=== PATIENT | male | born 1975 | race American Indian/Alaskan Native ===

== ENCOUNTER 2018-07-24 12:41 | Inpatient (IN) | payer SELFPAY ==
--- NOTE | 2018-07-24 14:12 | Emergency Department Report ---
<MESSI MONTE - Last Filed: 07/24/18 14:10> ED Extremity Problem HPI - General Chief complaint: Extremity Problem,Nontraumatic Stated complaint: RT BIG TOE PAIN Time Seen by Provider: 07/24/18 13:43 Source: patient Mode of arrival: Ambulatory Limitations: No Limitations - History of Present Illness Initial comments: Ervin is a 43-year-old Male who is presenting with right great toe infection. Patient states the last 2 weeks he has had increased swelling to the right great toe with discoloration the patient also states that he has a large amount of pus and skin sloughing at the base of the right great toe. Patient states that he has had no fevers chills nausea vomiting at this time. Patient states the aching pain in the foot is actually great toe is nontender. Patient until he has poor circulation in his legs. 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 Absent: respiratory distress, wheezes, rales - Cardiovascular Cardiovascular Exam: Present: regular rate, normal rhythm. Absent: systolic murmur, diastolic murmur, rubs, gallop - GI/Abdominal GI/Abdominal exam: Present: soft, normal bowel sounds - Rectal Rectal exam: Present: deferred - Extremities Exam Extremities exam: Present: normal inspection, other (of the patient's right great toe shows hyperpigmentation is cool to touch distally. At the base of the right great toe the patient from the mid dorsal surface going around medially to the entire plantar surface at the MCP joint shows necrosis granulation tissue. There is a foul odor present.) - Back Exam Back exam: Present: normal inspection - Neurological Exam Neurological exam: Present: alert, oriented X3 - Psychiatric Psychiatric exam: Present: normal affect, normal mood - Skin Skin exam: Present: warm, dry, intact, normal color. Absent: rash ED Disposition Clinical Impression: Osteomyelitis of right foot Qualifiers: Osteomyelitis type: unspecified type Qualified Code(s): M86.9 - Osteomyelitis, unspecified Disposition: DC-09 OP ADMIT IP TO THIS HOSP Condition: Stable <RADHA VALVERDE - Last Filed: 07/24/18 21:37> ED Extremity Problem HPI - History of Present Illness Initial comments: Patient denies any pain to side. Denies any loss of sensation. He said that area started around his right great toe is blistered and hit worsened and now draining pus with that order. Patient reports that he has a history of poor circulation to his lower extremity and was diagnosed after he had a stroke a couple years ago. Patient also smokes for 23 years he said he started SMOKING in 1 pack every 2 days and now he smokes 3-4 cigarettes a day. MD Complaint: joint swelling Onset/Timin -: week(s) Location: right, toe (great toe) History of Same: Yes -: No myalgia, No arthralgia, No fever, No associated dyspnea, No associated chest pain Radiation: none Severity scale (0 -10): 0 Associated Symptoms: denies: chest pain, shortness of breath, fever, myalgias, arthralgias, rash ED Review of Systems ROS: Stated complaint: RT BIG TOE PAIN Other details as noted in HPI Comment: All other systems reviewed and negative Constitutional: denies: chills, fever, malaise Respiratory: denies: cough, shortness of breath, wheezing Cardiovascular: denies: chest pain, palpitations, dyspnea on exertion, edema, syncope Gastrointestinal: denies: abdominal pain, nausea, vomiting Musculoskeletal: denies: back pain, joint swelling, arthralgia, myalgia Skin: other (right great toe with wound, swollen and pus) Neurological: denies: headache, weakness, numbness, paresthesias, vertigo ED Past Medical Hx - Family History Family history: hypertension ED Physical Exam - Eye Eye exam: Present: PERRL - ENT ENT exam: Present: normal exam - Neck Neck exam: Present: full ROM - Cardiovascular Cardiovascular Exam: Present: normal heart sounds - GI/Abdominal GI/Abdominal exam: Absent: tenderness - Extremities Exam Extremities exam: Present: full ROM, normal capillary refill, joint swelling, other. Absent: normal inspection, tenderness, pedal edema, calf tenderness - Expanded Lower Extremity Exam Right Hip exam: Present: normal inspection, full ROM Upper Leg exam: Present: normal inspection, full ROM Knee exam: Present: normal inspection, full ROM Lower Leg exam: Present: normal inspection, full ROM Ankle exam: Present: normal inspection, full ROM Foot/Toe exam: Present: full ROM, swelling (right great toe extending into first metacarpal bone area), dislocation (with pus draining from right great toe and laxity of toe. Hyperpigmentation to foot and toes.). Absent: normal inspect ion, tenderness, abrasion, laceration, ecchymosis, deformity, crepidus, erythema, amputation, puncture wound, foreign body, calcaneal tenderness, tenderness at base of 5th metatarsal, nail avulsion Neuro vascular tendon exam: Present: abnormal cap refill (greater than 3 seco nds), decreased fine/light touch (right great toe). Absent: pulse deficit (right pedal pulses are 1+), motor deficit, sensory deficit, tendon deficit, extremity cold to touch, pallor, abnormal 2-point discrimination, foot drop, peroneal nerve deficit, significant pain with passive ROM of distal joint Gait: Positive: observed and normal - Back Exam Back exam: Present: full ROM - Neurological Exam Neurological exam: Present: normal gait, reflexes normal. Absent: motor sensory deficit - Skin Skin exam: Present: other (patient with wound to right great toe). Absent: warm (cool to touch to right great toe otherwise normal temperature), intact, normal color - Expanded Skin Exam Expanded Type of lesion: Present: other (infected wound right great toe) Distribution of rash: other (right great toe with discoloration extending to the right foot) Description of rash: Present: tenderness, swelling, discharge, other ( patient's right great toe shows hyperpigmentation is cool to touch distally. At the base of the right great toe the patient from the mid dorsal surface going around medially to the entire plantar surface at the MCP joint shows necrosis granulation tissue. There is a foul odor present.). Absent: erythematous ED Course Vital Signs 07/24/18 07/24/18 12:45 20:06 Temperature 98.6 F 98.5 F Pulse Rate 58 L 76 Respiratory 16 19 Rate Blood Pressure 127/79 Blood Pressure 110/64 [Right] O2 Sat by Pulse 100 99 Oximetry - Reevaluation(s) Reevaluation #1: 07/24/18 16:25 Patient with osteomyelitis of right great toe and will be started on vancomycin and Ceftin IV. He denies pain. Hospitalist paged and awaiting call back blood cultures ordered Reevaluation #2: 07/24/18 17:37 Dr. SUN saw and assessed patient and patient to be admitted to [facility]. Reevaluation #3: 07/24/18 20:45 Patient on route to [facility] floor. He remained stable throughout ED course. Admitted by hospitalist Reevaluation #4: 07/24/18 21:31 Patient transferred to room 386 ED Medical Decision Making - Lab Data Result diagrams: 07/24/18 14:19 07/24/18 14:19 Lab Results 07/24/18 07/24/18 Range/Units 14:19 14:19 WBC 9.7 (4.5-11.0) K/mm3 RBC 4.64 (3.65-5.03) M/mm3 Hgb 14.6 (11.8-15.2) gm/dl Hct 43.7 (35.5-45.6) % MCV 94 (84-94) fl MCH 31 (28-32) pg MCHC 33 (32-34) % RDW 13.7 (13.2-15.2) % Plt Count 413 (140-440) K/mm3 Lymph % (Auto) 34.2 (13.4-35.0) % Lassen % (Auto) 7.0 (0.0-7.3) % Eos % (Auto) 2.1 (0.0-4.3) % Baso % (Auto) 1.1 (0.0-1.8) % Lymph # 3.3 (1.2-5.4) K/mm3 Lassen # 0.7 (0.0-0.8) K/mm3 Eos # 0.2 (0.0-0.4) K/mm3 Baso # 0.1 (0.0-0.1) K/mm3 Seg Neutrophils % 55.6 (40.0-70.0) % Seg Neutrophils # 5.4 (1.8-7.7) K/mm3 Sodium 137 (137-145) mmol/L Potassium 4.4 (3.6-5.0) mmol/L Chloride 96.1 L (98-107) mmol/L Carbon Dioxide 26 (22-30) mmol/L Anion Gap 19 mmol/L BUN 11 (9-20) mg/dL Creatinine 0.7 L (0.8-1.5) mg/dL Estimated GFR > 60 ml/min BUN/Creatinine Ratio 16 % Glucose 80 (75-100) mg/dL Calcium 9.8 (8.4-10.2) mg/dL Blood culture pending - Radiology Data Radiology results: report reviewed Findings [facility] [address] [place] [address] XRay Report Signed Patient: CLARY CHAMBERS MR#: [id number] : 1975 Acct:[id number] Age/Sex: 43 / M ADM Date: 07/24/18 Loc: ED Attending Dr: Ordering Physician: MESSI MONTE MD Date of Service: 07/24/18 Procedure(s): XR foot 2V RT Accession Number(s): [id number] cc: MESSI MONTE MD Fluoro Time In Minutes: RIGHT FOOT, 2 VIEWS History: Swelling to right great toe. Findings: There is a large complex soft tissue defect or laceration at the level of the interphalangeal joint of the great toe. Resorption of the distal aspect of the proximal phalanx and the base of the distal phalanx of the great toe is appreciated. It is unclear if this represents a traumatic injury or is related to infection. Osteomyelitis cannot be excluded. Please correlate with the clinical history of the patient. The remaining bony structures in the right foot are intact. Moderate distal soft tissue swelling is noted. Impression: Severely abnormal right great toe as described. Traumatic injury or osteomyelitis/infectious process is suspected. Please correlate with the patient's clinical history. Transcribed By: TTR Dictated By: TRINA OLIVERA JR, MD Electronically Authenticated By: TRINA OLIVERA JR, MD Signed Date/Time: 07/24/18 1502 DD/ 1500 TD/TT: 07/24/18 1502 - Medical Decision Making This is a 40-year-old male here report right great toe infection with bad odor and drainage. Patient had x-ray of right foot which shows Severely abnormal right great toe as described. Traumatic injury or osteomyelitis/infectious process is suspected. This was dictated by radiologist and report reviewed by myself and Dr. Virginia Monte. Dr. Monte also evaluated patient. She had no pain to side. He was started on vancomycin and ceftriaxone IV and Dr. Sun who is a hospitalist evaluated patient and it was decided the patient will be admitted to inpatient. This was discussed the patient in details and is in agreement. Patient is stable and [facility] - Differential Diagnosis infection, bacterial unknown, osteomyelitis Critical care attestation.: If time is entered above; I have spent that time in minutes in the direct care of this critically ill patient, excluding procedure time. ED Disposition Is pt being admited?: Yes Does the pt Need Aspirin: No
[2018-07-24 14:34] LABS: Basophils # (Auto) 0.1 K/mm3 (0.0-0.1); Basophils % (Auto) 1.1 % (0.0-1.8); Eosinophils # (Auto) 0.2 K/mm3 (0.0-0.4); Eosinophils % (Auto) 2.1 % (0.0-4.3); Hematocrit 43.7 % (35.5-45.6); Hemoglobin 14.6 gm/dl (11.8-15.2); Lymphocytes # (Auto) 3.3 K/mm3 (1.2-5.4); Lymphocytes % (Auto) 34.2 % (13.4-35.0); Mean Corpuscular HGB Conc 33 % (32-34); Mean Corpuscular Volume 94 fl (84-94); Monocytes # (Auto) 0.7 K/mm3 (0.0-0.8); Platelet Count 413 K/mm3 (140-440); Red Blood Count 4.64 M/mm3 (3.65-5.03); Red Cell Distribution Width 13.7 % (13.2-15.2)
[2018-07-24 14:57] LABS: BUN/Creatinine Ratio 16; Blood Urea Nitrogen 11 mg/dL (9-20); Calcium 9.8 mg/dL (8.4-10.2); Hemolysis Index 4
--- NOTE | 2018-07-24 15:04 | XRay Report ---
RIGHT FOOT, 2 VIEWS History: Swelling to right great toe. Findings: There is a large complex soft tissue defect or laceration at the level of the interphalangeal joint of the great toe. Resorption of the distal aspect of the proximal phalanx and the base of the distal phalanx of the great toe is appreciated. It is unclear if this represents a traumatic injury or is related to infection. Osteomyelitis cannot be excluded. Please correlate with the clinical history of the patient. The remaining bony structures in the right foot are intact. Moderate distal soft tissue swelling is noted. Impression: Severely abnormal right great toe as described. Traumatic injury or osteomyelitis/infectious process is suspected. Please correlate with the patient's clinical history.
[2018-07-24] MEDS ORDERED: VANCOMYCIN/NS 1 GM/250 ML 1 GM/250 ML BAG IV ONE (16:17)
[2018-07-24] MEDS ORDERED: ROCEPHIN/NS 2 GM/100 ML 2 GM/100 ML BAG IV ONE (16:17)
[2018-07-24] MEDS ORDERED: VANCOMYCIN 2,000 MG in NACL 0.9% 500 ML 500 ML IV ONE (16:30)
[2018-07-24] MEDS ORDERED: SODIUM CHLORIDE FLUSH SYRINGE 10 ML IV PRN (17:38)
[2018-07-24] MEDS: D5/0.45NS 1,000 ML IV SCH (23:23)
[2018-07-25] MEDS ORDERED: TYLENOL PO PRN (01:13)
[2018-07-25] MEDS ORDERED: ZOFRAN IV PRN (01:13)
[2018-07-25] MEDS ORDERED: SODIUM CHLORIDE FLUSH SYRINGE 10 ML IV PRN (01:13)
[2018-07-25] MEDS ORDERED: VANCOMYCIN PHARMACY TO DOSE IV SCH (02:00)
[2018-07-25] MEDS: D5/0.45NS 1,000 ML IV SCH ×2 (04:21→17:55)
[2018-07-25] MEDS ORDERED: VANCOMYCIN 1,750 MG in NACL 0.9% 500 ML 500 ML IV SCH (06:00)
--- NOTE | 2018-07-25 07:22 | Event Note ---
Date: 07/24/18 See dictated H/p in reports Rt Great toe wound with infection and possible Osteomyelitis
--- NOTE | 2018-07-25 07:46 | History and Physical Report ---
CHIEF COMPLAINT: Right great toe infection for 2 weeks. HISTORY OF PRESENT ILLNESS: A 43-year-old male with no significant past medical history except for a cerebrovascular accident in the past and circulatory issues to both lower extremities, comes in for right great toe infection of 2 weeks' duration. Deep ulcer present on the proximal part of the right great toe and feels as if the toe is falling apart. Pain is about 7 on a scale of 1-10. The patient states that he has poor circulation in the legs. PAST MEDICAL HISTORY: Significant for cerebrovascular accident and peripheral arterial disease. PAST SURGICAL HISTORY: Cancerous cyst removed from brain at the age 6, history is unclear. SOCIAL HISTORY: Smokes over a pack a day. FAMILY HISTORY: Hypertension. REVIEW OF SYSTEMS: Significant for right great toe ulcer with drainage and pain. Otherwise, review of systems negative. PHYSICAL EXAMINATION: GENERAL: Young male, cooperative during examination. VITAL SIGNS: Blood pressure is 110/64, temperature is 98.5, pulse is 58-76. HEENT: Unremarkable. Pupils are equal and reactive. NECK: Supple, no lymphadenopathy, no thyromegaly. LUNGS: Clear to auscultation and percussion. Good air entry. CARDIOVASCULAR: S1, S2 heard. No gallop, no murmur, no rub. Apical impulse in left fifth intercostal space and midclavicular line. ABDOMEN: Soft and benign. No hepatosplenomegaly. No guarding, no rigidity. EXTREMITIES: Deep ulcer present on the dorsal surface of the right great toe extending up to the plantar surface at the metacarpophalangeal joint junction. Also, necrotic tissue and foul odor present. CENTRAL NERVOUS SYSTEM: Alert and oriented x 4, nonfocal exam. LABORATORY DATA AND IMAGING STUDIES: Foot x-ray shows severely abnormal right great toe, traumatic injury or osteomyelitis, or infected process suspected. Please correlate with the patient's clinical history. Labs are normal. CBC is normal. White count is 9700. Electrolytes are normal. BUN and creatinine 11 and 0.7. ASSESSMENT AND PLAN: 1. Right great toe infected wound with cellulitis. The patient initiated on ceftriaxone and vancomycin. Also, Orthopedic consult requested because of possible osteomyelitis. The patient may need amputation of the great toe. IV antibiotics, ceftriaxone, and vancomycin to continue. 2. Peripheral arterial disease, arterial duplex scan ordered. Check the arterial duplex scan. Vascular Surgery consult if necessary. 3. Deep venous thrombosis prophylaxis, Lovenox 40 mg subcutaneous daily. [facility]# [id number] DAMION/ANANYA
[2018-07-25] MEDS: ROCEPHIN/NS 2 GM/100 ML 2 GM/100 ML BAG IV SCH (09:49)
[2018-07-25] MEDS: PEPCID PO SCH ×2 (09:50→22:11)
[2018-07-25] MEDS: SODIUM CHLORIDE FLUSH SYRINGE 10 ML IV SCH ×2 (09:50→22:12)
--- NOTE | 2018-07-25 11:43 | Progress Note ---
Assessment and Plan Right great toe infected wound with cellulitis and possible osteomyelitis - Continue Rocephin and vancomycin - Orthopedics consulted, wound care consulted - We'll follow blood culture and wound culture Peripheral artery disease, arterial duplex scan ordered DVT prophylaxis, continue Lovenox Physical exam: GENERAL: well-developed and well-nourished -[place] male lying on bed appeared to be in no discomfort. HEENT: Normocephalic. Atraumatic. No conjunctival congestion or icterus. Patient has moist mucous membranes. NECK: Supple. Trachea midline. CHEST/LUNGS: Clear to auscultated bilaterally, breathing nonlabored. No wheezes crackles or rhonchi. HEART/CARDIOVASCULAR: Regular in rate and rhythm. S1 and S2 positive. ABDOMEN: Abdomen is soft, nontender. Patient has normal bowel sounds. SKIN: There is no rash. Warm and dry. NEURO: No focal motor deficit. Follows command. MUSCULOSKELETAL: No joint effusion or tenderness. EXTRIMITY: No edema, no cyanosis or clubbing. Right great toe with ulcer and foul smell PSYCH: Cooperative. Subjective Date of service: 07/25/18 Interval history: Patient seen and examined c/o right leg pain draining foul smelling discharge from right great toe Objective - Constitutional Vitals: Vital Signs - 12hr 07/25/18 05:31 Temperature 98.5 F Pulse Rate 71 Respiratory 18 Rate Blood Pressure 93/64 O2 Sat by Pulse 97 Oximetry - Labs CBC & Chem 7: 07/24/18 14:19 07/26/18 06:26 Labs: Abnormal lab results 07/24/18 Range/Units 14:19 Chloride 96.1 L (98-107) mmol/L Creatinine 0.7 L (0.8-1.5) mg/dL
[2018-07-25] MEDS: LOVENOX SUB-Q SCH (22:11)
[2018-07-26] MEDS: D5/0.45NS 1,000 ML IV SCH ×3 (03:30→20:43)
[2018-07-26 07:15] LABS: BUN/Creatinine Ratio 9; Blood Urea Nitrogen 6 mg/dL (9-20); Calcium 8.5 mg/dL (8.4-10.2); Hemolysis Index 4
[2018-07-26] MEDS: PEPCID PO SCH ×2 (09:26→22:46)
[2018-07-26] MEDS: SODIUM CHLORIDE FLUSH SYRINGE 10 ML IV SCH ×2 (09:27→22:47)
[2018-07-26] MEDS: ROCEPHIN/NS 2 GM/100 ML 2 GM/100 ML BAG IV SCH (09:28)
[2018-07-26] MEDS: VANCOMYCIN/NS 1 GM/250 ML 1 GM/250 ML BAG IV SCH (12:57)
--- NOTE | 2018-07-26 13:00 | Progress Note ---
Assessment and Plan Right great toe infected wound with cellulitis and possible osteomyelitis - Continue Rocephin and vancomycin - Orthopedics consulted, but has not seen the pt yet, will consult GS and VS - wound care consulted - We'll follow blood culture and wound culture ? Peripheral artery disease, arterial duplex scan ordered - pending. has good pulse h/o CVA on 2016 - start on aspirin and statin DVT prophylaxis, continue Lovenox Physical exam: GENERAL: well-developed and well-nourished -[place] male lying on bed appeared to be in no discomfort. HEENT: Normocephalic. Atraumatic. No conjunctival congestion or icterus. Patient has moist mucous membranes. NECK: Supple. Trachea midline. CHEST/LUNGS: Clear to auscultated bilaterally, breathing nonlabored. No wheezes crackles or rhonchi. HEART/CARDIOVASCULAR: Regular in rate and rhythm. S1 and S2 positive. ABDOMEN: Abdomen is soft, nontender. Patient has normal bowel sounds. SKIN: There is no rash. Warm and dry. NEURO: No focal motor deficit. Follows command. MUSCULOSKELETAL: No joint effusion or tenderness. EXTRIMITY: No edema, no cyanosis or clubbing. Right great toe with ulcer and foul smell PSYCH: Cooperative. Subjective Date of service: 07/26/18 Interval history: Patient seen and examined c/o right leg pain no acute issue O/n Objective - Constitutional Vitals: Vital Signs - 12hr 07/26/18 04:54 Temperature 98.3 F Pulse Rate 57 L Respiratory 18 Rate Blood Pressure 100/60 O2 Sat by Pulse 96 Oximetry - Labs CBC & Chem 7: 07/24/18 14:19 07/26/18 06:26 Labs: Abnormal lab results 07/26/18 Range/Units 06:26 BUN 6 L (9-20) mg/dL Creatinine 0.7 L (0.8-1.5) mg/dL Glucose 108 H (75-100) mg/dL
--- NOTE | 2018-07-26 13:58 | Consultation ---
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 Patient states the last 2 weeks he has had increased swelling to the right great toe with discoloration the patient also states that he has a large amount of pus and skin sloughing at the base of the right great toe. Patient states that he has had no fevers chills nausea vomiting at this time. Patient states the aching pain in the foot is actually great toe is nontender. The patient reports that he has had issues with the right foot for the last year with intermittent purulent drainage. This most recent episode has resulted in gangrenous changes of the right first digit. The patient has palpable bilateral dorsalis pedis and posterior tibial arteries. Discussed with the patient the importance of neuropathic footwear and offloading after amputation. Explained to the patient that his first digit is not salvageable. Past History Past Medical History: stroke Past Surgical History: Other (cancerous cyst removed from [place]) Social history: smoking Family history: hypertension Medications and Allergies Allergies Allergy/AdvReac Type Severity Reaction Status Date / Time No Known Allergies Allergy Unverified 07/24/18 13:53 Active Meds: Active Medications Acetaminophen (Tylenol) 650 mg PO Q4H PRN PRN Reason: Pain MILD(1-3)/Fever >100.5/[place] Aspirin (Halfprin Ec) 81 mg PO QDAY [facility] Atorvastatin Calcium (Lipitor) 40 mg PO QHS [facility] Enoxaparin Sodium (Lovenox) 40 mg SUB-Q QDAY@2200 [facility] Last Admin: 07/25/18 22:11 Dose: 40 mg Documented by: Famotidine (Pepcid) 20 mg PO BID [facility] Last Admin: 07/26/18 09:26 Dose: 20 mg Documented by: Hydromorphone HCl (Dilaudid) 1 mg IV Q3H PRN PRN Reason: Pain , Severe (7-10) Dextrose/Sodium Chloride (D5/0.45ns) 1,000 mls @ 125 mls/hr IV DIRECT [facility] Last Admin: 07/26/18 09:27 Dose: 125 mls/hr Documented by: Ceftriaxone Sodium (Rocephin/Ns 2 Gm/100 Ml) 2 gm in 100 mls @ 200 mls/hr IV Q24HR [facility]; Protocol Last Admin: 07/26/18 09:28 Dose: 200 mls/hr Documented by: Vancomycin HCl (Vancomycin/Ns 1 Gm/250 Ml) 1 gm in 250 mls @ 167.007 mls/hr IV Q12H [facility] Last Admin: 07/26/18 12:57 Dose: 167.007 mls/hr Documented by: Ondansetron HCl (Zofran) 4 mg IV Q3H PRN PRN Reason: Nausea And Vomiting Oxycodone/Acetaminophen (Percocet 5/325) 1 tab PO Q6H PRN PRN Reason: Pain, Moderate (4-6) Sodium Chloride (Sodium Chloride Flush Syringe 10 Ml) 10 ml IV PRN PRN PRN Reason: LINE FLUSH Sodium Chloride (Sodium Chloride Flush Syringe 10 Ml) 10 ml IV BID [facility] Last Admin: 07/26/18 09:27 Dose: 10 ml Documented by: Sodium Chloride (Sodium Chloride Flush Syringe 10 Ml) 10 ml IV PRN PRN PRN Reason: LINE FLUSH Review of Systems All systems: negative (see HPI) Exam - Constitutional Vitals: Temp Pulse Resp BP Pulse Ox 98.7 F 65 14 101/65 98 07/26/18 12:18 07/26/18 12:18 07/26/18 12:18 07/26/18 12:18 07/26/18 12:18 General appearance: Present: no acute distress - EENT Eyes: Present: EOM intact ENT: hearing intact - Respiratory Respiratory effort: normal - Extremities Extremities: pulses intact (palpable bilateral dorsalis pedis and posterior tibial arteries ; gangrenous changes of the right first digit) - Psychiatric Psychiatric: appropriate mood/affect, cooperative - Neurologic Neurologic: other (neuropathy of the right lower extremity) Results - Labs CBC & Chem 7: 07/24/18 14:19 07/26/18 06:26 Labs: Abnormal lab results 07/26/18 Range/Units 06:26 BUN 6 L (9-20) mg/dL Creatinine 0.7 L (0.8-1.5) mg/dL Glucose 108 H (75-100) mg/dL Assessment and Plan 43-year-old male with history of stroke with residual neuropathy of the right lower extremity and history of peripheral vascular disease with presentation of right first digit gangrene after 2 weeks of infection with intermittent issues for the last year. The patient has palpable bilateral dorsalis pedis and posterior tibial arteries. He has adequate flow to heal his wounds. History of PVD was determined by a disability physician who performed a suboptimal physical exam. No significant peripheral vascular disease on physical exam. The right first digit has osseous destruction and is not salvageable and gangrenous. Recommend contacting general surgery/wound care for first digit amputation. No vascular intervention anticipated.
[2018-07-26] MEDS: HALFPRIN EC PO SCH (14:00)
[2018-07-26] MEDS: LOVENOX SUB-Q SCH (22:46)
[2018-07-27] MEDS: VANCOMYCIN/NS 1 GM/250 ML 1 GM/250 ML BAG IV SCH ×2 (00:51→12:20)
[2018-07-27] MEDS: D5/0.45NS 1,000 ML IV SCH (06:28)
--- NOTE | 2018-07-27 09:01 | Consultation ---
History of Present Illness Consult date: 07/27/18 Reason for consult: wound care Requesting physician: ALICIA SUN Chief complaint: right foot wound - History of present illness History of present illness: 43yo M with a h/o a CVA presents with a 2 week history of a right foot wound. Associated with drainage and pain. No F/C. he has had problems with the right foot for the past year. Sensation intact except in the 1st toe itself. Past History Past Medical History: stroke Past Surgical History: Other (cancerous cyst removed from [place]) Social history: smoking. denies: alcohol abuse Family history: hypertension Medications and Allergies Allergies Allergy/AdvReac Type Severity Reaction Status Date / Time No Known Allergies Allergy Unverified 07/24/18 13:53 Active Meds: Active Medications Acetaminophen (Tylenol) 650 mg PO Q4H PRN PRN Reason: Pain MILD(1-3)/Fever >100.5/[place] Aspirin (Halfprin Ec) 81 mg PO QDAY [facility] Last Admin: 07/26/18 14:00 Dose: 81 mg Documented by: Atorvastatin Calcium (Lipitor) 40 mg PO QHS [facility] Last Admin: 07/26/18 22:46 Dose: 40 mg Documented by: Enoxaparin Sodium (Lovenox) 40 mg SUB-Q QDAY@2200 [facility] Last Admin: 07/26/18 22:46 Dose: 40 mg Documented by: Famotidine (Pepcid) 20 mg PO BID [facility] Last Admin: 07/26/18 22:46 Dose: 20 mg Documented by: Hydromorphone HCl (Dilaudid) 1 mg IV Q3H PRN PRN Reason: Pain , Severe (7-10) Dextrose/Sodium Chloride (D5/0.45ns) 1,000 mls @ 125 mls/hr IV DIRECT [facility] Last Admin: 07/27/18 06:28 Dose: 125 mls/hr Documented by: Ceftriaxone Sodium (Rocephin/Ns 2 Gm/100 Ml) 2 gm in 100 mls @ 200 mls/hr IV Q24HR [facility]; Protocol Last Admin: 07/26/18 09:28 Dose: 200 mls/hr Documented by: Vancomycin HCl (Vancomycin/Ns 1 Gm/250 Ml) 1 gm in 250 mls @ 167.007 mls/hr IV Q12H [facility] Last Admin: 07/27/18 00:51 Dose: 167.007 mls/hr Documented by: Ondansetron HCl (Zofran) 4 mg IV Q3H PRN PRN Reason: Nausea And Vomiting Oxycodone/Acetaminophen (Percocet 5/325) 1 tab PO Q6H PRN PRN Reason: Pain, Moderate (4-6) Sodium Chloride (Sodium Chloride Flush Syringe 10 Ml) 10 ml IV PRN PRN PRN Reason: LINE FLUSH Sodium Chloride (Sodium Chloride Flush Syringe 10 Ml) 10 ml IV BID [facility] Last Admin: 07/26/18 22:47 Dose: 10 ml Documented by: Sodium Chloride (Sodium Chloride Flush Syringe 10 Ml) 10 ml IV PRN PRN PRN Reason: LINE FLUSH Review of Systems - Constitutional chronic pain, no fever, no chills - Cardiovascular no chest pain - Respiratory no cough, no shortness of breath - Gastrointestinal no abdominal pain, no nausea, no vomiting - Genitourinary no dysuria - Muskuloskeletal right: foot pain (in the 1st toe) - Integumentary wounds, darkening of skin, foot/leg ulcers (at the base of the 1st toe) - Neurological weakness (both lower ext) Exam Vital Signs Temp Pulse Resp BP Pulse Ox 98.6 F 58 L 16 127/79 100 07/24/18 12:45 07/24/18 12:45 07/24/18 12:45 07/24/18 12:45 07/24/18 12:45 - General physical appearance Positive: no distress, no pain, other (does not appear ill. Pleasant) - Respiratory Positive: normal expansion, normal respiratory effort, clear to auscultation - Cardiovascular Rhythm: regular - Extremities Extremities: pulses intact, normal temperature Extremity abnormal: edema, ulceration, black, tenderness, other (right great toe is black with large open wound at base. Flexor tendon and bone are disrupted. No purulent drainage seen. +odor.) - Neurologic Neurologic: alert and oriented to time, place and person - Psychiatric Psychiatric: appropriate mood/affect, intact judgment & insight Results - Labs 07/24/18 14:19 07/26/18 06:26 - Imaging Additional studies: right foot x-ray - report and images reviewed. The IP joint is disrupted. Assessment and Plan - Patient Problems (1) Gangrene of toe of right foot Current Visit: Yes Status: Acute Plan to address problem: Pt stable. In need of completion amputation. Procedure, risks, benefits, alternatives discussed. Pt wishes to proceed with surgery. Will schedule with OR. Will return for written consent. Time=30min
[2018-07-27] MEDS: PEPCID PO SCH ×2 (09:36→22:06)
[2018-07-27] MEDS: HALFPRIN EC PO SCH (09:36)
[2018-07-27] MEDS: SODIUM CHLORIDE FLUSH SYRINGE 10 ML IV SCH ×2 (09:37→22:06)
[2018-07-27] MEDS: ROCEPHIN/NS 2 GM/100 ML 2 GM/100 ML BAG IV SCH (11:13)
--- NOTE | 2018-07-27 15:51 | Progress Note ---
Assessment and Plan Right great toe gangrene and possible osteomyelitis - Continue Rocephin and vancomycin -Plan for amputation by tomorrow - wound care consulted - We'll follow blood culture and wound culture ? Peripheral artery disease, arterial duplex scan ordered - pending. has good pulse h/o CVA on 2016 - start on aspirin and statin DVT prophylaxis, continue Lovenox Physical exam: GENERAL: well-developed and well-nourished -Pakistani male lying on bed appeared to be in no discomfort. HEENT: Normocephalic. Atraumatic. No conjunctival congestion or icterus. Patient has moist mucous membranes. NECK: Supple. Trachea midline. CHEST/LUNGS: Clear to auscultated bilaterally, breathing nonlabored. No wheezes crackles or rhonchi. HEART/CARDIOVASCULAR: Regular in rate and rhythm. S1 and S2 positive. ABDOMEN: Abdomen is soft, nontender. Patient has normal bowel sounds. SKIN: There is no rash. Warm and dry. NEURO: No focal motor deficit. Follows command. MUSCULOSKELETAL: No joint effusion or tenderness. EXTRIMITY: No edema, no cyanosis or clubbing. Right great toe with ulcer and foul smell PSYCH: Cooperative. Subjective Date of service: 07/27/18 Interval history: Patient seen and examined c/o right leg pain no acute issue O/n Objective - Constitutional Vitals: Vital Signs - 12hr 07/27/18 05:35 Temperature 98.4 F Pulse Rate 60 Respiratory 16 Rate Blood Pressure 103/70 O2 Sat by Pulse 100 Oximetry - Labs CBC & Chem 7: 07/24/18 14:19 07/26/18 06:26
--- NOTE | 2018-07-27 17:53 | Vascular Lab Report ---
FINAL REPORT PROCEDURE: Bilateral upper extremity duplex arterial ultrasound. TECHNIQUE: Duplex Doppler ultrasound of both upper extremities was performed with image documentatio n. HISTORY: Peripheral arterial disease. COMPARISON: No prior studies are available for comparison. FINDINGS: Right upper extremity: Arterial waveforms: Triphasic. Thrombus: None. Stenosis: None. Color signal: Normal. Significant segmental velocity differential: None. Arterial bypass graft: Not present. Stenosis: None. Left upper extremity: Arterial waveforms: Triphasic. Thrombus: None. Stenosis: None. Color signal: Normal. Significant segmental velocity differential: None. Arterial bypass graft: Not present. Stenosis: None. IMPRESSION: No evidence of significant arterial insufficiency in the upper extremities.
[2018-07-28] MEDS: VANCOMYCIN/NS 1 GM/250 ML 1 GM/250 ML BAG IV SCH ×3 (00:02→23:45)
[2018-07-28] MEDS: D5/0.45NS 1,000 ML IV SCH (00:38)
[2018-07-28] MEDS ORDERED: SUBLIMAZE ONE (07:14)
[2018-07-28] MEDS ORDERED: XYLOCAINE MPF 2% ONE (07:14)
[2018-07-28] MEDS ORDERED: DIPRIVAN 10 MG/ML IV ONE (07:15)
[2018-07-28] MEDS ORDERED: NEOSPORIN GU IR ONE ×2 (07:16→07:53)
[2018-07-28] MEDS ORDERED: VERSED ONE (07:18)
[2018-07-28] MEDS ORDERED: NACL 0.9% 1000 ML 1,000 ML ONE (07:20)
[2018-07-28] MEDS ORDERED: NACL 0.9% IR ONE (07:53)
[2018-07-28] MEDS ORDERED: ZOFRAN ONE (08:19)
--- NOTE | 2018-07-28 08:45 | Post Operative Note ---
Date of procedure: 07/28/18 (Dictation:[id number]) Pre-op diagnosis: Right great toe gangrene Post-op diagnosis: same Findings: Large ulcer at base of right great toe. No purulent drainage. proximal phalanx had evidence of destructive changes at the tip. Joint capsule normal. No infection tracking deep into the foot. Procedure: Right great toe amputation Anesthesia: GETA Surgeon: PIOTR RODRIGUES Estimated blood loss: minimal Pathology: list (right great toe) Specimen disposition: to lab Condition: stable Disposition: PACU
[2018-07-28] MEDS: DILAUDID IV PRN ×3 (10:11→22:40)
[2018-07-28] MEDS: ROCEPHIN/NS 2 GM/100 ML 2 GM/100 ML BAG IV SCH (10:29)
[2018-07-28] MEDS ORDERED: ZOFRAN IV PRN (10:33)
[2018-07-28] MEDS ORDERED: DILAUDID IV PRN (10:33)
--- NOTE | 2018-07-28 10:33 | Anesthesia Day of Surgery ---
Anesthesia Day of Surgery - Day of Surgery Patient Examined: Yes Patient H&P Reviewed: Yes Patient is NPO: Yes
--- NOTE | 2018-07-28 10:33 | Anesthesia Consultation ---
Anesthesia Consult and Med Hx Date of service: 07/28/18 - Airway Anesthetic Teeth Evaluation: Poor ROM Head & Neck: Adequate Mental/Hyoid Distance: Adequate Mallampati Class: Class II Intubation Access Assessment: Probably Good - Pulmonary Exam CTA: Yes - Cardiac Exam Cardiac Exam: RRR - Pre-Operative Health Status ASA Pre-Surgery Classification: ASA3 Proposed Anesthetic Plan: General - Pulmonary Hx Asthma: No Hx Pneumonia: No
[2018-07-28] MEDS ORDERED: LACTATED RINGERS 1,000 ML IV SCH (11:00)
--- NOTE | 2018-07-28 11:06 | Operative Report ---
PREOPERATIVE DIAGNOSIS: Gangrene of right great toe. POSTOPERATIVE DIAGNOSIS: Gangrene of right great toe. PROCEDURE: Amputation of right great toe at the metatarsophalangeal joint, CPT code 27712. SURGEON: Rodríguez Bone MD ANESTHESIA: General. ESTIMATED BLOOD LOSS: Minimal. FLUIDS: 500 mL. FINDINGS: Large ulcer at the base of the right toe. Right toe was black in appearance and foul smelling. No purulent fluid was identified. The distal tip of the proximal phalanx was destroyed from infection and ischemia most likely. SPECIMEN: Right great toe. DRAINS: None. COMPLICATIONS: Stable at transfer to Recovery Room. INDICATIONS: This is a 43-year-old male who presented with a 2-week history of pain and drainage from the right great toe. He has had a problem with this toe for the past year. Denies any fevers or chills. Assessment of the toe revealed gangrenous changes. The patient was assessed to be in need for amputation. Procedure, risks, benefits were explained to the patient. Risks included but were not limited to infection, bleeding, pain, injury to surrounding structures, possible need for further procedures in the future. The patient understood and consented. DESCRIPTION OF PROCEDURE: The patient was brought to the operating room and placed on the table in supine position. After adequate general anesthesia was established, the patient was prepped and draped in usual sterile fashion. He was already on antibiotics at this time. Time-out was called. As there was already a large ulcer on the inside of the right great toe, I made a sharp incision on the opposite side to the skin to complete the division. Dissection was carried down to the bone level. The distal tip of the proximal phalanx showed destructive changes. There did not seem to be enough of that proximal phalanx that was salvageable. Therefore, the joint capsule was divided. The right great toe and the proximal phalanx were removed and passed off the table in sterile fashion to be sent to pathology. All nonviable tissue was excised both sharply and with electrocautery. The metatarsal head was then scraped with a rongeur to remove the joint capsule lining to facilitate healing. There was no evidence of any purulent fluid in the surrounding tissue or extending up the tendon sheath. Wound was thoroughly irrigated and then packed with iodine-soaked gauze. The skin was cleaned and dried. Dressings were then placed. The patient tolerated the procedure well. There were no complications. All counts were correct at the end of the case. JOB# [id number] LALO/NAANYA
--- NOTE | 2018-07-28 13:56 | Post Anesthesia Evaluation ---
- Post Anesthesia Evaluation Patient Participated: Yes Airway Patent: Yes Stable Respiratory Function: Yes Nausea/Vomiting: No Temp > 96.8F: Yes Pain Manageable: Yes Adequeate Hydration: Yes Anesthesia Complications: No
[2018-07-28] MEDS: PEPCID PO SCH ×2 (16:13→21:32)
[2018-07-28] MEDS: SODIUM CHLORIDE FLUSH SYRINGE 10 ML IV SCH ×2 (16:13→21:32)
[2018-07-28] MEDS: HALFPRIN EC PO SCH (19:24)
[2018-07-29] MEDS: D5/0.45NS 1,000 ML IV SCH ×3 (03:27→22:24)
[2018-07-29] MEDS: DILAUDID IV PRN ×2 (03:41→08:33)
--- NOTE | 2018-07-29 07:23 | Progress Note ---
Assessment and Plan Right great toe gangrene and possible osteomyelitis - Continue Rocephin and vancomycin -s/p amputation by Gs today - wound care consulted ? Peripheral artery disease, arterial duplex scan ordered - ruled out. has good pulse h/o CVA on 2016 - cont on aspirin and statin DVT prophylaxis, continue Lovenox Physical exam: GENERAL: well-developed and well-nourished -[place] male lying on bed appeared to be in no discomfort. HEENT: Normocephalic. Atraumatic. No conjunctival congestion or icterus. Patient has moist mucous membranes. NECK: Supple. Trachea midline. CHEST/LUNGS: Clear to auscultated bilaterally, breathing nonlabored. No wheezes crackles or rhonchi. HEART/CARDIOVASCULAR: Regular in rate and rhythm. S1 and S2 positive. ABDOMEN: Abdomen is soft, nontender. Patient has normal bowel sounds. SKIN: There is no rash. Warm and dry. NEURO: No focal motor deficit. Follows command. MUSCULOSKELETAL: No joint effusion or tenderness. EXTRIMITY: No edema, no cyanosis or clubbing. surgical dressing on right foot PSYCH: Cooperative. Subjective Date of service: 07/28/18 Interval history: Patient seen and examined s/p right great toe amputation today, tolerated well no acute issue O/n Objective - Constitutional Vitals: Vital Signs - 12hr 07/29/18 07/29/18 00:18 05:58 Temperature 98.0 F 98.2 F Pulse Rate 64 66 Respiratory 20 18 Rate Blood Pressure 110/75 103/71 O2 Sat by Pulse 99 99 Oximetry - Labs CBC & Chem 7: 07/29/18 07:31 07/29/18 07:31
[2018-07-29 07:51] LABS: Hematocrit 39.4 % (35.5-45.6); Hemoglobin 13.2 gm/dl (11.8-15.2); Mean Corpuscular HGB Conc 34 % (32-34); Mean Corpuscular Volume 95 fl (84-94); Platelet Count 253 K/mm3 (140-440); Red Blood Count 4.15 M/mm3 (3.65-5.03); Red Cell Distribution Width 14.4 % (13.2-15.2)
[2018-07-29 08:06] LABS: BUN/Creatinine Ratio 11; Blood Urea Nitrogen 8 mg/dL (9-20); Calcium 8.8 mg/dL (8.4-10.2); Hemolysis Index 13
--- NOTE | 2018-07-29 10:07 | Progress Note ---
Assessment and Plan - Patient Problems (1) Gangrene of toe of right foot Current Visit: Yes Status: Acute Plan to address problem: Pt stable. s/p right great toe amputation - 07/28/18 - POD#1. Spoke with wound care nurse. She will see patient and decide on wound care plan such as wound vac, daily dressing changes, etc. We are limited by his lack of insurance. Please call with questions. Subjective Date of service: 07/29/18 Patient Reports: Positive: no new complaints, still having pain (at surgery site). Negative: nausea, vomiting Objective Vital Signs - 12hr 07/29/18 07/29/18 00:18 05:58 Temperature 98.0 F 98.2 F Pulse Rate 64 66 Respiratory 20 18 Rate Blood Pressure 110/75 103/71 O2 Sat by Pulse 99 99 Oximetry - General physical appearance no distress, no pain, other (does not appear ill) - Respiratory normal expansion, normal respiratory effort - Musculoskeletal other (right foot dressing dry and intact) - Labs 07/29/18 07:31 07/29/18 07:31 Diabetes panel 07/29/18 Range/Units 07:31 Sodium 137 (137-145) mmol/L Potassium 4.2 (3.6-5.0) mmol/L Chloride 101.7 (98-107) mmol/L Carbon Dioxide 27 (22-30) mmol/L BUN 8 L (9-20) mg/dL Creatinine 0.7 L (0.8-1.5) mg/dL Glucose 94 (75-100) mg/dL Calcium 8.8 (8.4-10.2) mg/dL Calcium panel 07/29/18 Range/Units 07:31 Calcium 8.8 (8.4-10.2) mg/dL Pituitary panel 07/29/18 Range/Units 07:31 Sodium 137 (137-145) mmol/L Potassium 4.2 (3.6-5.0) mmol/L Chloride 101.7 (98-107) mmol/L Carbon Dioxide 27 (22-30) mmol/L BUN 8 L (9-20) mg/dL Creatinine 0.7 L (0.8-1.5) mg/dL Glucose 94 (75-100) mg/dL Calcium 8.8 (8.4-10.2) mg/dL Adrenal panel 01/09/19 Range/Units 07:31 Sodium 137 (137-145) mmol/L Potassium 4.2 (3.6-5.0) mmol/L Chloride 101.7 (98-107) mmol/L Carbon Dioxide 27 (22-30) mmol/L BUN 8 L (9-20) mg/dL Creatinine 0.7 L (0.8-1.5) mg/dL Glucose 94 (75-100) mg/dL Calcium 8.8 (8.4-10.2) mg/dL
[2018-07-29] MEDS: PEPCID PO SCH ×2 (10:46→22:24)
[2018-07-29] MEDS: ROCEPHIN/NS 2 GM/100 ML 2 GM/100 ML BAG IV SCH (10:46)
[2018-07-29] MEDS: HALFPRIN EC PO SCH (10:46)
[2018-07-29] MEDS: SODIUM CHLORIDE FLUSH SYRINGE 10 ML IV SCH ×2 (10:46→22:25)
[2018-07-29] MEDS: VANCOMYCIN/NS 1 GM/250 ML 1 GM/250 ML BAG IV SCH (12:26)
[2018-07-29] MEDS: PERCOCET 5/325 PO PRN ×2 (12:35→18:26)
--- NOTE | 2018-07-29 14:44 | Progress Note ---
Assessment and Plan Right great toe gangrene and possible osteomyelitis - Continue Rocephin and vancomycin -s/p amputation by Gs on 07/28/18, will need wound vac - wound care consulted, wait for further recommendation ? Peripheral artery disease, arterial duplex scan ordered - ruled out. has good pulse h/o CVA on 2016 - cont on aspirin and statin DVT prophylaxis, continue Lovenox Physical exam: GENERAL: well-developed and well-nourished -[place] male lying on bed appeared to be in no discomfort. HEENT: Normocephalic. Atraumatic. No conjunctival congestion or icterus. Patient has moist mucous membranes. NECK: Supple. Trachea midline. CHEST/LUNGS: Clear to auscultated bilaterally, breathing nonlabored. No wheezes crackles or rhonchi. HEART/CARDIOVASCULAR: Regular in rate and rhythm. S1 and S2 positive. ABDOMEN: Abdomen is soft, nontender. Patient has normal bowel sounds. SKIN: There is no rash. Warm and dry. NEURO: No focal motor deficit. Follows command. MUSCULOSKELETAL: No joint effusion or tenderness. EXTRIMITY: No edema, no cyanosis or clubbing. surgical dressing on right foot PSYCH: Cooperative. Subjective Date of service: 07/29/18 Interval history: Patient seen and examined s/p right great toe amputation, doing well will need wound vac Objective - Constitutional Vitals: Vital Signs - 12hr 07/29/18 07/29/18 05:58 11:49 Temperature 98.2 F 98.2 F Pulse Rate 66 68 Respiratory 18 18 Rate Blood Pressure 103/71 111/67 O2 Sat by Pulse 99 99 Oximetry - Labs CBC & Chem 7: 07/29/18 07:31 07/29/18 07:31 Labs: Abnormal lab results 07/29/18 07/29/18 Range/Units 07:31 07:31 MCV 95 H (84-94) fl BUN 8 L (9-20) mg/dL Creatinine 0.7 L (0.8-1.5) mg/dL
[2018-07-30] MEDS: PERCOCET 5/325 PO PRN ×4 (00:09→22:42)
[2018-07-30] MEDS: VANCOMYCIN/NS 1 GM/250 ML 1 GM/250 ML BAG IV SCH ×2 (00:09→13:27)
[2018-07-30] MEDS: D5/0.45NS 1,000 ML IV SCH ×2 (06:49→15:24)
[2018-07-30] MEDS: PEPCID PO SCH ×2 (11:01→22:42)
[2018-07-30] MEDS: HALFPRIN EC PO SCH (11:02)
[2018-07-30] MEDS: SODIUM CHLORIDE FLUSH SYRINGE 10 ML IV SCH (11:02)
[2018-07-30] MEDS: ROCEPHIN/NS 2 GM/100 ML 2 GM/100 ML BAG IV SCH (11:02)
--- NOTE | 2018-07-30 15:57 | Progress Note ---
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 Peripheral artery disease, arterial duplex scan ordered - ruled out. has good pulse h/o CVA on 2016 - cont on aspirin and statin DVT prophylaxis, continue Lovenox Disposition: waiting for wound vac Physical exam: GENERAL: well-developed and well-nourished -Tongan male lying on bed appeared to be in no discomfort. HEENT: Normocephalic. Atraumatic. No conjunctival congestion or icterus. Patient has moist mucous membranes. NECK: Supple. Trachea midline. CHEST/LUNGS: Clear to auscultated bilaterally, breathing nonlabored. No wheezes crackles or rhonchi. HEART/CARDIOVASCULAR: Regular in rate and rhythm. S1 and S2 positive. ABDOMEN: Abdomen is soft, nontender. Patient has normal bowel sounds. SKIN: There is no rash. Warm and dry. NEURO: No focal motor deficit. Follows command. MUSCULOSKELETAL: No joint effusion or tenderness. EXTRIMITY: No edema, no cyanosis or clubbing. surgical dressing on right foot PSYCH: Cooperative. Subjective Date of service: 07/30/18 Interval history: Patient seen and examined s/p right great toe amputation, doing well will need wound vac Objective - Constitutional Vitals: Vital Signs - 12hr 07/30/18 07/30/18 07/30/18 06:03 07:55 07:58 Temperature 98.0 F Pulse Rate 64 Respiratory 18 16 Rate Respiratory 16 Rate [Right Foot] Blood Pressure 107/60 O2 Sat by Pulse 100 Oximetry 07/30/18 07/30/18 11:55 14:17 Temperature 98.9 F Pulse Rate 73 Respiratory 18 16 Rate Respiratory Rate [Right Foot] Blood Pressure 106/59 O2 Sat by Pulse 100 Oximetry - Labs CBC & Chem 7: 07/29/18 07:31 07/29/18 07:31
[2018-07-30] MEDS ORDERED: MIRALAX 3350 PO PRN (18:03)
[2018-07-30] MEDS: COLACE PO SCH (22:42)
[2018-07-31] MEDS: D5/0.45NS 1,000 ML IV SCH ×3 (00:11→21:19)
[2018-07-31] MEDS: VANCOMYCIN/NS 1 GM/250 ML 1 GM/250 ML BAG IV SCH ×2 (03:25→12:05)
[2018-07-31] MEDS: PERCOCET 5/325 PO PRN ×3 (07:34→21:15)
[2018-07-31] MEDS: COLACE PO SCH ×2 (09:48→21:15)
[2018-07-31] MEDS: SODIUM CHLORIDE FLUSH SYRINGE 10 ML IV SCH ×2 (09:48→21:20)
[2018-07-31] MEDS: PEPCID PO SCH ×2 (09:49→21:15)
[2018-07-31] MEDS: HALFPRIN EC PO SCH (09:49)
[2018-07-31] MEDS: ROCEPHIN/NS 2 GM/100 ML 2 GM/100 ML BAG IV SCH (09:50)
--- NOTE | 2018-07-31 14:36 | Discharge Summary ---
Providers - Providers Date of Admission: 07/24/18 17:38 Date of discharge: 08/03/18 Attending physician: GENESIS HARMON 07/25/18 01:15 Consult to Physician [CONS] Routine Comment: Consulting Provider: ELSA MENDOZA Physician Instructions: Reason For Exam: Rt Grt Toe osteomyelitis 07/25/18 01:25 Consult to Wound/ET Nurse [CONS] Routine Reason For Exam: wound eval 07/26/18 12:52 Consult to Physician [CONS] Routine Comment: Consulting Provider: DO KIM Physician Instructions: Reason For Exam: PVD with gangrene 07/26/18 12:59 Consult to Physician [CONS] Routine Comment: Consulting Provider: PIOTR RODRIGUES Physician Instructions: Reason For Exam: right great toe gangrene 07/31/18 11:59 Physical Therapy Evaluation and Treat [CONS] Routine Comment: no weight bearing on rt foot Reason For Exam: s/p amputation of rt great toe Primary care physician: DIRECTOR OF INSTITUTIONAL RESEARCH Hospitalization Condition: Stable Pertinent studies: Foot XRY LE venous duplex Hospital course: 43-year-old -[place] male with 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 Patient stated that for last two weeks he has had increased swelling to the right great toe with discoloration with large amount of pus and skin sloughing at the base of the right great toe. The patient has palpable bilateral dorsalis pedis and posterior tibial arteries. GS was consulted and had amputation by , Discussed with the patient the importance of neuropathic footwear and offloading after amputation. Patient was evaluated for PVD and that was ruled out by normal arterial duplex. Wound vac was placed and then patient was then discharged home in stable condition with outpt followup. Discharge Diagnosis and management: Right great toe gangrene and possible osteomyelitis - Continue Rocephin and vancomycin -s/p amputation by GS on 07/28/18, wound care consulted, placed on wound vac - will cont outpt follow up ? Peripheral artery disease, arterial duplex scan ordered - ruled out. has good pulse h/o CVA on 2016 - cont on aspirin and statin DVT prophylaxis, covered with Lovenox Disposition: home with outpt f/u and Physical exam: GENERAL: well-developed and well-nourished -[place]ijani male lying on bed appeared to be in no discomfort. HEENT: Normocephalic. Atraumatic. No conjunctival congestion or icterus. Patient has moist mucous membranes. NECK: Supple. Trachea midline. CHEST/LUNGS: Clear to auscultated bilaterally, breathing nonlabored. No wheezes crackles or rhonchi. HEART/CARDIOVASCULAR: Regular in rate and rhythm. S1 and S2 positive. ABDOMEN: Abdomen is soft, nontender. Patient has normal bowel sounds. SKIN: There is no rash. Warm and dry. NEURO: No focal motor deficit. Follows command. MUSCULOSKELETAL: No joint effusion or tenderness. EXTRIMITY: No edema, no cyanosis or clubbing. surgical dressing on right foot PSYCH: Cooperative. Disposition: DC/TX-06 HOME UNDER HOME [facility] Time spent for discharge: 34 minutes Core Measure Documentation - Palliative Care Palliative Care/ Comfort Measures: Not Applicable - Core Measures Any of the following diagnoses?: history only Exam - Constitutional Vitals: Temp Pulse Resp BP Pulse Ox 97.9 F 64 20 106/61 98 07/31/18 12:05 07/31/18 12:05 07/31/18 12:05 07/31/18 12:05 07/31/18 12:05 Plan Activity: advance as tolerated Weight Bearing Status: Non-Weight Bearing Diet: low fat, low salt Wound: per your surgeon's advice, per wound nurse instructions Follow up with: PRIMARY CARE, [Primary Care Provider] - 3-5 Days Prescriptions: AtorvaSTATin [Lipitor] 40 mg PO QHS #30 tablet Aspirin EC [Aspirin Enteric Coated TAB] 81 mg PO QDAY #30 tablet oxyCODONE /ACETAMINOPHEN [Percocet 5/325 mg] 1 tab PO Q6H PRN #14 tablet PRN Reason: Pain, Moderate (4-6) Polyethylene Glycol 3350 [Miralax 3350] 17 gm PO QDAY PRN #30 powd.pack PRN Reason: Constipation
[2018-08-01] MEDS: PERCOCET 5/325 PO PRN ×3 (05:02→19:52)
[2018-08-01] MEDS: D5/0.45NS 1,000 ML IV SCH ×2 (05:03→13:18)
[2018-08-01] MEDS: HALFPRIN EC PO SCH (09:48)
[2018-08-01] MEDS: COLACE PO SCH ×2 (09:48→22:25)
[2018-08-01] MEDS: PEPCID PO SCH ×2 (09:48→22:25)
[2018-08-01] MEDS: ROCEPHIN/NS 2 GM/100 ML 2 GM/100 ML BAG IV SCH (09:49)
[2018-08-01] MEDS: VANCOMYCIN/NS 1 GM/250 ML 1 GM/250 ML BAG IV SCH ×2 (13:04→15:48)
[2018-08-01] MEDS: SODIUM CHLORIDE FLUSH SYRINGE 10 ML IV SCH ×3 (13:17→23:49)
--- NOTE | 2018-08-01 13:37 | Progress Note ---
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 Peripheral artery disease, arterial duplex scan ordered - ruled out. has good pulse h/o CVA on 2016 - cont on aspirin and statin DVT prophylaxis, continue Lovenox Disposition: waiting for wound vac Physical exam: GENERAL: well-developed and well-nourished -Vietnamese male lying on bed appeared to be in no discomfort. HEENT: Normocephalic. Atraumatic. No conjunctival congestion or icterus. Patient has moist mucous membranes. NECK: Supple. Trachea midline. CHEST/LUNGS: Clear to auscultated bilaterally, breathing nonlabored. No wheezes crackles or rhonchi. HEART/CARDIOVASCULAR: Regular in rate and rhythm. S1 and S2 positive. ABDOMEN: Abdomen is soft, nontender. Patient has normal bowel sounds. SKIN: There is no rash. Warm and dry. NEURO: No focal motor deficit. Follows command. MUSCULOSKELETAL: No joint effusion or tenderness. EXTRIMITY: No edema, no cyanosis or clubbing. surgical dressing on right foot PSYCH: Cooperative. Subjective Date of service: 07/31/18 Interval history: Patient seen and examined s/p right great toe amputation, doing well will need wound vac Objective - Constitutional Vitals: Vital Signs - 12hr 08/01/18 08/01/18 05:57 11:37 Temperature 98.0 F 98.5 F Pulse Rate 74 96 H Respiratory 18 18 Rate Blood Pressure 114/63 113/65 O2 Sat by Pulse 99 100 Oximetry - Labs CBC & Chem 7: 07/29/18 07:31 07/29/18 07:31
[2018-08-02] MEDS: D5/0.45NS 1,000 ML IV SCH ×3 (00:21→19:43)
[2018-08-02] MEDS: VANCOMYCIN/NS 1 GM/250 ML 1 GM/250 ML BAG IV SCH ×2 (02:12→18:55)
[2018-08-02] MEDS: PERCOCET 5/325 PO PRN ×3 (04:46→18:49)
[2018-08-02] MEDS: COLACE PO SCH ×2 (11:03→21:35)
[2018-08-02] MEDS: PEPCID PO SCH ×2 (11:03→21:35)
[2018-08-02] MEDS: ROCEPHIN/NS 2 GM/100 ML 2 GM/100 ML BAG IV SCH (11:03)
[2018-08-02] MEDS: HALFPRIN EC PO SCH (11:04)
[2018-08-02] MEDS: SODIUM CHLORIDE FLUSH SYRINGE 10 ML IV SCH ×2 (11:04→21:35)
--- NOTE | 2018-08-02 11:45 | Progress Note ---
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 Peripheral artery disease, arterial duplex scan ordered - ruled out. has good pulse h/o CVA on 2016 - cont on aspirin and statin DVT prophylaxis, continue Lovenox Disposition: waiting for wound vac Physical exam: GENERAL: well-developed and well-nourished -[place] male lying on bed appeared to be in no discomfort. HEENT: Normocephalic. Atraumatic. No conjunctival congestion or icterus. Patient has moist mucous membranes. NECK: Supple. Trachea midline. CHEST/LUNGS: Clear to auscultated bilaterally, breathing nonlabored. No wheezes crackles or rhonchi. HEART/CARDIOVASCULAR: Regular in rate and rhythm. S1 and S2 positive. ABDOMEN: Abdomen is soft, nontender. Patient has normal bowel sounds. SKIN: There is no rash. Warm and dry. NEURO: No focal motor deficit. Follows command. MUSCULOSKELETAL: No joint effusion or tenderness. EXTRIMITY: No edema, no cyanosis or clubbing. surgical dressing on right foot PSYCH: Cooperative. Subjective Date of service: 08/01/18 Interval history: Patient seen and examined s/p right great toe amputation, doing well will need wound vac Objective - Constitutional Vitals: Vital Signs - 12hr 08/02/18 05:43 Temperature 97.7 F Pulse Rate 77 Respiratory 16 Rate Blood Pressure 101/65 O2 Sat by Pulse 98 Oximetry - Labs CBC & Chem 7: 07/29/18 07:31 07/29/18 07:31
--- NOTE | 2018-08-02 15:00 | Progress Note ---
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 Peripheral artery disease, arterial duplex scan ordered - ruled out. has good pulse h/o CVA on 2016 - cont on aspirin and statin DVT prophylaxis, continue Lovenox Disposition: waiting for wound vac Physical exam: GENERAL: well-developed and well-nourished -[place] male lying on bed appeared to be in no discomfort. HEENT: Normocephalic. Atraumatic. No conjunctival congestion or icterus. Patient has moist mucous membranes. NECK: Supple. Trachea midline. CHEST/LUNGS: Clear to auscultated bilaterally, breathing nonlabored. No wheezes crackles or rhonchi. HEART/CARDIOVASCULAR: Regular in rate and rhythm. S1 and S2 positive. ABDOMEN: Abdomen is soft, nontender. Patient has normal bowel sounds. SKIN: There is no rash. Warm and dry. NEURO: No focal motor deficit. Follows command. MUSCULOSKELETAL: No joint effusion or tenderness. EXTRIMITY: No edema, no cyanosis or clubbing. surgical dressing on right foot PSYCH: Cooperative. Subjective Date of service: 08/02/18 Interval history: Patient seen and examined s/p right great toe amputation, doing well will need wound vac Objective - Constitutional Vitals: Vital Signs - 12hr 08/02/18 05:43 Temperature 97.7 F Pulse Rate 77 Respiratory 16 Rate Blood Pressure 101/65 O2 Sat by Pulse 98 Oximetry - Labs CBC & Chem 7: 07/29/18 07:31 07/29/18 07:31
[2018-08-02] MEDS ORDERED: DILAUDID IV PRN (16:00)
[2018-08-03] MEDS: PERCOCET 5/325 PO PRN ×2 (01:26→08:15)
[2018-08-03] MEDS: VANCOMYCIN/NS 1 GM/250 ML 1 GM/250 ML BAG IV SCH (02:33)
[2018-08-03] MEDS: D5/0.45NS 1,000 ML IV SCH (05:51)
[2018-08-03 07:40] VITALS: BP 100/66
[2018-08-03] MEDS: HALFPRIN EC PO SCH (09:24)
[2018-08-03] MEDS: PEPCID PO SCH (09:24)
[2018-08-03] MEDS: COLACE PO SCH (09:24)
[2018-08-03] MEDS: SODIUM CHLORIDE FLUSH SYRINGE 10 ML IV SCH (09:25)
[2018-08-03] MEDS: ROCEPHIN/NS 2 GM/100 ML 2 GM/100 ML BAG IV SCH (10:21)
== END 2018-08-03 11:55 | disposition home health service (06) | DRG 504 ==
LOC: ED 12:41 → 3A 17:38
PROVIDERS: ADMIT Internal Medicine; ATTEND Internal Medicine
PROC: 0Y6P0Z0 Detachment at Right 1st Toe, Complete, Open Approach (ICD-10-PCS; principal; 2018-07-28)
DX: M86.8X7 Other osteomyelitis, ankle and foot (principal); I96 Gangrene, not elsewhere classified; F17.200 Nicotine dependence, unspecified, uncomplicated; Z82.49 Family history of ischemic heart disease and other diseases of the circulatory system; L03.031 Cellulitis of right toe; I69.998 Other sequelae following unspecified cerebrovascular disease; G62.9 Polyneuropathy, unspecified; Z91.030 Bee allergy status
CPT/HCPCS: 36415; 80048; 80202; 85025; 85027; 87040; 88302; 88305; 88311; 93930; G0378; A9270-GY; J0696; J1170; J1650; J2250; J2405; J2704; J3010; J3370; J7030; J7040; J7120